=== PATIENT | male | born 1970 | race American Indian/Alaskan Native ===

== ENCOUNTER 2019-07-11 07:24 | Inpatient (IN) | payer OTHER ==
[2019-07-11] MEDS ORDERED: ASPIRIN 325 MG TAB PO ONE (07:38)
[2019-07-11 08:10] LABS: Basophils % (Auto) 0.1 % (0.0-1.8); Eosinophils % (Auto) 0.1 % (0.0-4.3); Hematocrit 25.4 % (35.5-45.6); Hemoglobin 8.2 gm/dl (11.8-15.2); Lymphocytes # (Auto) 0.5 K/mm3 (1.2-5.4); Lymphocytes % (Auto) 4.2 % (13.4-35.0); Mean Corpuscular HGB Conc 33 % (32-34); Mean Corpuscular Volume 89 fl (84-94); Monocytes # (Auto) 0.9 K/mm3 (0.0-0.8); Monocytes % (Auto) 8.2 % (0.0-7.3); Platelet Count 361 K/mm3 (140-440); Red Blood Count 2.86 M/mm3 (3.65-5.03); Red Cell Distribution Width 15.2 % (13.2-15.2)
[2019-07-11 08:18] LABS: INR 1.69 (0.87-1.13)
[2019-07-11 08:30] LABS: BUN/Creatinine Ratio 17; Blood Urea Nitrogen 12 mg/dL (9-20); Hemolysis Index 6
--- NOTE | 2019-07-11 08:32 | XRay Report ---
CHEST 2 VIEWS INDICATION: Chest Pain. COMPARISON: None FINDINGS: Support devices: None. Heart: Within normal limits. Lungs/pleura: There is poor inspiration with mild atelectatic changes in the lower lung zones. No ev idence for infiltrate, pleural effusion or pneumothorax. Additional findings: None. IMPRESSION: No acute findings. Poor inspiration with mild bibasilar atelectasis. Signer Name: Gary Blanchard Jr, MD Signed: 07/11/2019 8:28 AM Workstation Name: [id number]
--- NOTE | 2019-07-11 08:43 | Emergency Department Report ---
ED General Adult HPI - General Chief complaint: Chest Pain Stated complaint: CHEST PAIN, BURNING Time Seen by Provider: 07/11/19 08:28 Source: patient Mode of arrival: Ambulatory Limitations: No Limitations - History of Present Illness Initial comments: This is a 48-year old male who is an extremely poor historian. Apparently last night he was found to have a pulmonary embolism. He states he is taking a blood thinner but does not know the name. He does not know the name of any of his medications. He also has previous prescription for Namenda and Seroquel which may be indicative of his difficulty in providing an adequate medical history. The patient is accompanied by 2 gentleman from [employer]. One of the [employer] employees states that the patient put his head down on his desk stating that he felt like he was going to pass out. He came around somewhat. EMS was called to the scene. According to the [employer] employees they stated that EMS found the vital signs to be stable but offered transport. The patient declined. The patient himself then attempted to leave on his own accord to "drive himself to the hospital". However one of the coworkers intervened and the 2 gentleman brought the patient to the emergency department. The [employer] employees also state that the patient has had a very poor oral intake and appetite. On arrival the patient gives a very confused history. He states that he has a chronic cough which sometimes produces blood but is "normal". He states he had some burning in his anterior chest. He states his abdomen is more distended than usual. He is comfortable at the time of my encounter and not really actively complaining of anything. It would seem from the account of the coworkers that the patient has chronic liver disease, ascites, a liver mass and perhaps a history of pulmonary embolism. It looks like he has a history of hypertension judging from his previous medical reconciliation. Information from the [facility] physician indicates that the patient has a history of hepatocellular carcinoma and portal vein thrombosis. He is currently on Pradaxa. -: Gradual, hour(s) Location: chest Radiation: non-radiation Quality: burning Consistency: intermittent Improves with: none Worsens with: none Associated Symptoms: other (Abdomen uncomfortable when he sits up) Treatments Prior to Arrival: none - Related Data Allergies Allergy/AdvReac Type Severity Reaction Status Date / Time No Known Allergies Allergy Verified 07/11/19 08:31 ED Review of Systems ROS: Stated complaint: CHEST PAIN, BURNING Other details as noted in HPI Constitutional: weakness. denies: chills, fever Eyes: denies: eye pain, eye discharge, vision change ENT: denies: ear pain, throat pain Respiratory: cough (Chronic with hemoptysis sometimes). denies: shortness of breath, wheezing Cardiovascular: chest pain. denies: palpitations Endocrine: no symptoms reported Gastrointestinal: abdominal pain, other (Patient denies GI bleeding however he is a very poor historian.). denies: nausea, diarrhea Genitourinary: denies: urgency, dysuria Musculoskeletal: denies: back pain, joint swelling, arthralgia Skin: denies: rash, lesions Neurological: denies: headache, weakness, paresthesias Psychiatric: denies: anxiety, depression Hematological/Lymphatic: denies: easy bleeding, easy bruising ED Past Medical Hx - Past Medical History Previous Medical History?: Yes Hx Pulmonary Embolism: Yes Additional medical history: Liver mass - Surgical History Past Surgical History?: No - Social History Smoking Status: Never Smoker Substance Use Type: None ED Physical Exam - General Limitations: No Limitations General appearance: alert, in no apparent distress - Head Head exam: Present: atraumatic, normocephalic - Eye Eye exam: Present: normal appearance, PERRL - ENT ENT exam: Present: mucous membranes moist - Neck Neck exam: Present: normal inspection. Absent: tenderness, meningismus - Respiratory Respiratory exam: Present: normal lung sounds bilaterally. Absent: respiratory distress - Cardiovascular Cardiovascular Exam: Present: normal rhythm, tachycardia (Borderline). Absent: systolic murmur, diastolic murmur, rubs, gallop - GI/Abdominal GI/Abdominal exam: Present: soft, distended (Somewhat tense ascites), normal bowel sounds, organomegaly (Likely hepatomegaly). Absent: tenderness (No dana tenderness), guarding, rebound - Rectal Rectal exam: Present: heme (+) stool (trace) - Extremities Exam Extremities exam: Present: normal inspection. Absent: calf tenderness - Back Exam Back exam: Present: normal inspection. Absent: CVA tenderness (R), CVA tenderness (L), muscle spasm, paraspinal tenderness, vertebral tenderness - Neurological Exam Neurological exam: Present: alert, oriented X3, CN II-XII intact. Absent: motor sensory deficit - Psychiatric Psychiatric exam: Present: normal mood, flat affect - Skin Skin exam: Present: warm, dry, intact, normal color. Absent: rash ED Course Vital Signs 07/11/19 07/11/19 07/11/19 07:36 08:34 08:41 Temperature 97.9 F Pulse Rate 104 H 98 H Respiratory 18 24 26 H Rate Blood Pressure Blood Pressure 122/80 123/83 [Right] O2 Sat by Pulse 100 100 100 Oximetry 07/11/19 12:45 Temperature 97.8 F Pulse Rate 98 H Respiratory 24 Rate Blood Pressure 105/74 Blood Pressure [Right] O2 Sat by Pulse 99 Oximetry - Reevaluation(s) Reevaluation #1: Patient has significant hyponatremia. Normal saline infusion was begun. Further work-up is ordered. I have paged the [facility] physician to determine the patient's ultimate disposition. He obviously will require hospitalization. 07/11/19 09:00 Reevaluation #2: Discussed with Dr. Archer at [facility]. She has approved the patient's admission here. 07/11/19 12:42 ED Medical Decision Making - Lab Data Result diagrams: 07/11/19 07:40 07/11/19 07:40 Laboratory Results - last 24 hr 07/11/19 07/11/19 07/11/19 07:40 07:40 07:40 WBC 11.3 H RBC 2.86 L Hgb 8.2 L Hct 25.4 L MCV 89 MCH 29 MCHC 33 RDW 15.2 Plt Count 361 Lymph % (Auto) 4.2 L [place] % (Auto) 8.2 H Eos % (Auto) 0.1 Baso % (Auto) 0.1 Lymph # 0.5 L [place] # 0.9 H Eos # 0.0 Baso # 0.0 Seg Neutrophils % 87.4 H Seg Neutrophils # 9.9 H PT 20.2 H INR 1.69 H APTT 71.0 H* Sodium 121 L Potassium 4.0 Chloride 82.9 L Carbon Dioxide 21 L Anion Gap 21 BUN 12 Creatinine 0.7 L Estimated GFR > 60 BUN/Creatinine Ratio 17 Glucose 157 H Calcium 8.0 L Troponin T < 0.010 Laboratory Results - last 24 hr 07/11/19 07/11/19 07/11/19 07:40 07:40 07:40 WBC 11.3 H RBC 2.86 L Hgb 8.2 L Hct 25.4 L MCV 89 MCH 29 MCHC 33 RDW 15.2 Plt Count 361 Lymph % (Auto) 4.2 L [place] % (Auto) 8.2 H Eos % (Auto) 0.1 Baso % (Auto) 0.1 Lymph # 0.5 L [place] # 0.9 H Eos # 0.0 Baso # 0.0 Seg Neutrophils % 87.4 H Seg Neutrophils # 9.9 H PT 20.2 H INR 1.69 H APTT 71.0 H* Sodium 121 L Potassium 4.0 Chloride 82.9 L Carbon Dioxide 21 L Anion Gap 21 BUN 12 Creatinine 0.7 L Estimated GFR > 60 BUN/Creatinine Ratio 17 Glucose 157 H Lactic Acid Calcium 8.0 L Magnesium Ammonia Total Creatine Kinase CK-MB (CK-2) CK-MB (CK-2) Rel Index Troponin T < 0.010 NT-Pro-B Natriuret Pep 07/11/19 07/11/19 07/11/19 08:58 08:58 08:58 WBC RBC Hgb Hct MCV MCH MCHC RDW Plt Count Lymph % (Auto) [place] % (Auto) Eos % (Auto) Baso % (Auto) Lymph # [place] # Eos # Baso # Seg Neutrophils % Seg Neutrophils # PT INR APTT Sodium Potassium Chloride Carbon Dioxide Anion Gap BUN Creatinine Estimated GFR BUN/Creatinine Ratio Glucose Lactic Acid 5.30 H* Calcium Magnesium 2.70 H Ammonia 39.0 Total Creatine Kinase 106 CK-MB (CK-2) < 1.0 CK-MB (CK-2) Rel Index 0.9 Troponin T < 0.010 NT-Pro-B Natriuret Pep 292.7 - EKG Data -: EKG Interpreted by Me EKG shows normal: sinus rhythm Rate: normal - EKG Data Interpretation: nonspecific ST-T wave melissa (Consider old inferior zone), other (Right bundle branch block prolonged QT interval nonspecific repolarization abnormality) - Radiology Data Radiology results: report reviewed (Restricted lung, discoid atelect, I don't see anything acute on CT scan), image reviewed IMPRESSION: Markedly abnormal liver. There is evidence for cirrhosis and multiple liver masses. This may represent a primary liver malignancy such as hepatocellular carcinoma. Metastatic disease is not excluded. Large ascites and multiple peritoneal nodules consistent with metastatic disease. Portal vein thrombosis. IMPRESSION: No acute abnormality. Negative unenhanced CT of the brain. Critical Care Time: Yes Critical care time in (mins) excluding proc time.: 110 Critical care attestation.: If time is entered above; I have spent that time in minutes in the direct care of this critically ill patient, excluding procedure time. ED Disposition Clinical Impression: Hepatocellular carcinoma, Hyponatremia, Lactic acidosis Ascites Qualifiers: Ascites type: malignant Qualified Code(s): R18.0 - Malignant ascites GI bleeding Qualifiers: GI bleed type/associated pathology: unspecified gastrointestinal hemorrhage type Qualified Code(s): K92.2 - Gastrointestinal hemorrhage, unspecified Anemia Qualifiers: Anemia type: unspecified type Qualified Code(s): D64.9 - Anemia, unspecified Disposition: DC-09 OP ADMIT IP TO THIS HOSP Is pt being admited?: Yes Does the pt Need Aspirin: No (GI bleeding) Condition: Stable Referrals: VIVIANA DUNN [Other] - 3-5 Days
[2019-07-11] MEDS ORDERED: PANTOPRAZOLE 40 MG INJ IV ONE (08:58)
[2019-07-11] MEDS ORDERED: SODIUM CHLORIDE 0.9% 1000 ML 1,000 ML IV ONE (09:10)
[2019-07-11] MEDS ORDERED: SODIUM CHLORIDE 0.9% 1000 ML 1,000 ML ONE (09:13)
[2019-07-11] MEDS ORDERED: traMADol 50 MG TAB PO ONE (09:52)
[2019-07-11 10:03] LABS: Creatine Kinase MB < 1.0 ng/mL (0.0-4.0)
--- NOTE | 2019-07-11 10:13 | Cat Scan Report ---
CT BRAIN: 07/11/2019 INDICATION / CLINICAL INFORMATION: AMS h/o liver mass. COMPARISON: None available. FINDINGS: BRAIN/INTRACRANIAL STRUCTURES: Unenhanced CT images of the brain demonstrate no evidence of acute int racranial abnormality. Ventricles and sulci are normal in size and shape for a patient of this age. There is no evidence of hemorrhage or mass. There are no abnormal extra-axial fluid collections. EXTRACRANIAL STRUCTURES: Unremarkable. IMPRESSION: No acute abnormality. Negative unenhanced CT of the brain. All CT scans at this location are performed using dose reduction to ALARA by means of automated expos ure control. Signer Name: Chava Mendoza MD Signed: 07/11/2019 10:09 AM Workstation Name: [id number]
[2019-07-11] MEDS ORDERED: PIPERACILLIN/TAZOBACTAM 3.375 3.375 GM/50 ML BAG IV ONE (10:16)
[2019-07-11] MEDS ORDERED: SODIUM CHLORIDE 0.9% 500 ML 500 ML IV ONE (10:17)
[2019-07-11] MEDS ORDERED: VANCOMYCIN 1,750 MG in SODIUM CHLORIDE 0.9% 500 ML 500 ML IV SCH (10:30)
[2019-07-11] MEDS ORDERED: VANCOMYCIN PHARMACY TO DOSE IV SCH (11:00)
--- NOTE | 2019-07-11 12:15 | Cat Scan Report ---
CT ABDOMEN AND PELVIS WITH CONTRAST HISTORY: Tense ascites lactic acidosis abd pain and distention . COMPARISON: None. TECHNIQUE: Helical CT images of the abdomen and pelvis were obtained following administration of intr avenous contrast. Sagittal and coronal reformatted images were reviewed. All CT scans at this critical access hospital are performed using CT dose reduction for ALARA by means of automated exposure control. CONTRAST: 100 ml of intravenous contrast administered. FINDINGS: Abdomen/pelvis: The liver is markedly abnormal. Surface nodularity is identified throughout the live r consistent with cirrhosis. A large heterogeneous infiltrating mass is identified in the right hepat ic lobe measuring up to 10 cm in diameter. There are multiple additional smaller hypodense masses in the right hepatic lobe. This may represent a primary liver cancer such as hepatocellular carcinoma. P ortal vein thrombosis is suspected which extends to the proximal superior mesenteric vein. The hepati c veins are grossly patent. The spleen is normal size and contour. The biliary system, pancreas, kidn eys and adrenal glands are unremarkable. There is large ascites throughout the abdomen and pelvis. Multiple enhancing peritoneal nodules/eve s are identified consistent with peritoneal spread of tumor. No evidence for bowel obstruction or focal inflammation. No obvious GI mass. The bladder is empty. The prostate gland is normal size. The aorta and arterial structures are widel y patent. Lungs/bones: The lung bases are clear. No suspicious bony lesion is detected. IMPRESSION: Markedly abnormal liver. There is evidence for cirrhosis and multiple liver masses. This may represen t a primary liver malignancy such as hepatocellular carcinoma. Metastatic disease is not excluded. Large ascites and multiple peritoneal nodules consistent with metastatic disease. Portal vein thrombosis. Signer Name: Gary Blanchard Jr, MD Signed: 07/11/2019 12:11 PM Workstation Name: [id number]
[2019-07-11] MEDS: VANCOMYCIN 1,500 MG in SODIUM CHLORIDE 0.9% 500 ML 500 ML IV SCH (12:29)
[2019-07-11] MEDS ORDERED: ALBUTEROL 2.5 MG/3 ML NEBU IH PRN (12:43)
[2019-07-11 12:45] LABS: Bilirubin,Urine NEG (Negative); Blood,Urine NEG (Negative); Color,Urine Yellow (Yellow); Protein,Urine <15 mg/dL mg/dL (Negative); Urobilinogen,Urine < 2.0 mg/dL (<2.0)
--- NOTE | 2019-07-11 13:51 | History and Physical Report ---
History of Present Illness Date of admission: 07/11/19 12:43 Chief complaint: I am hurting, I feel weak and I could not breathe History of present illness: 48-year-old male with HCC, Portal Vein Thrombosis/PE on Therapeutic Anticoagulation with Pradaxa, HTN presents to ED for evaluation. Patient states that he has experienced generalized weakness, fatigue, and shortness of breath over the past 1 month with worsening symptoms over the past 1 day. Patient also reports that he has frequent episodes where he "coughs up blood". Patient states that he reported to work today and while conducting his daily work activities he reported feeling as though "I was going to pass out". Patient a lso reported pain in his chest. EMS was notified and upon arrival the patient was found to be in distress and subsequently transported to [facility] for further evaluation and care. Patient seen and evaluated in the emergency department. Lab and imaging studies reviewed. Upon further physical examination the patient localizes an area of pain in the epigastric region as the source of his pain which was previously referred to his chest pain. Patient found to have hepatocellular carcinoma, systemic inflammatory response syndrome, metabolic acidosis, symptomatic anemia suspected secondary to GI bleed. Patient denies fever, chills, palpitations, trauma, skin rash, recent ill contacts. Patient admitted to IM for medical stabilization due to high risk for decompensation. Patient initiated on GI bleed protocol and transfused with packed red blood cells. GI team consult placed in ED. No prior admission for review. All medication listed at time of admission have been reconciled. Past History Past Medical History: cancer, hypertension, pulmonary embolism Past Surgical History: No surgical history, Other (Reviewed) Social history: single. denies: smoking, alcohol abuse, prescription drug abuse Family history: hypertension, other (Reviewed) Medications and Allergies Allergies Allergy/AdvReac Type Severity Reaction Status Date / Time No Known Allergies Allergy Verified 07/11/19 08:31 Active Meds: Active Medications Albuterol (Proventil) 2.5 mg IH Q3HRT PRN PRN Reason: Shortness Of Breath Sodium Chloride (Nacl 0.9% 1000 Ml) 1,000 mls @ 125 mls/hr IV ONCE ONE Stop: 07/11/19 17:09 Last Admin: 07/11/19 09:14 Dose: 125 mls/hr Documented by: Vancomycin HCl 1,500 mg/ (Sodium Chloride) 530 mls @ 265 mls/hr IV Q12H [facility] Last Admin: 07/11/19 12:29 Dose: 265 mls/hr Documented by: Sodium Chloride (Sodium Chloride Flush Syringe 10 Ml) 10 ml IV BID [facility] Sodium Chloride (Sodium Chloride Flush Syringe 10 Ml) 10 ml IV PRN PRN PRN Reason: LINE FLUSH Review of Systems Constitutional: fatigue, weakness, no weight loss, no weight gain, no fever Ears, nose, mouth and throat: no ear pain, no ear discharge, no decreased hearing, no nasal discharge Cardiovascular: no chest pain, no orthopnea, no palpitations, no rapid/irregular heart beat, no edema Respiratory: cough, hemoptysis Gastrointestinal: abdominal pain, no nausea, no vomiting Genitourinary Male: no hematuria, no flank pain, no discharge, no urinary freque ncy, no urinary hesitancy Rectal: no pain, no incontinence, no bleeding Musculoskeletal: no neck stiffness, no neck pain, no shooting arm pain, no arm numbness/tingling, no low back pain, no leg numbness/tingling Integumentary: no rash, no pruritis, no sores, no wounds, no jaundice Neurological: no transient paralysis, no paralysis, no weakness, no parathesias, no tingling, no seizures, no syncope, no tremors Psychiatric: no anxiety, no memory loss, no change in sleep habits, no sleep disturbances, no insomnia, no hypersomnia, no change in libido, no suicidal ideation Endocrine: no cold intolerance, no heat intolerance, no polyphagia, no excessive thirst, no polydipsia, no polyuria, no excessive sweating, no flushing Hematologic/Lymphatic: no easy bruising, no easy bleeding, no lymphadenopathy, no lymphedema Allergic/Immunologic: no urticaria, no allergic rhinitis, no persistent infectio ns, no anaphylaxis Exam - Constitutional Vitals: Temp Pulse Resp BP Pulse Ox 97.9 F 95 H 24 127/87 99 07/11/19 13:30 07/11/19 13:30 07/11/19 13:30 07/11/19 13:30 07/11/19 13:30 General appearance: Present: mild distress, cachectic - EENT Eyes: Present: PERRL ENT: hearing intact, clear oral mucosa - Neck Neck: Present: supple, normal ROM - Respiratory Respiratory effort: normal Respiratory: bilateral: CTA - Cardiovascular Heart Sounds: Present: S1 & S2. Absent: rub, click - Extremities Extremities: pulses symmetrical, No edema Peripheral Pulses: within normal limits - Abdominal General gastrointestinal: Present: soft, non-tender, tender, normal bowel sounds Male genitourinary: Present: normal - Integumentary Integumentary: Present: clear, warm, dry - Musculoskeletal Musculoskeletal: generalized weakness - Psychiatric Psychiatric: appropriate mood/affect, intact judgment & insight - Neurologic Neurologic: CNII-XII intact, moves all extremities Results - Labs CBC & Chem 7: 07/11/19 07:40 07/11/19 07:40 Labs: Abnormal lab results 07/11/19 07/11/19 07/11/19 Range/Units 07:40 07:40 07:40 WBC 11.3 H (4.5-11.0) K/mm3 RBC 2.86 L (3.65-5.03) M/mm3 Hgb 8.2 L (11.8-15.2) gm/dl Hct 25.4 L (35.5-45.6) % Lymph % (Auto) 4.2 L (13.4-35.0) % [place] % (Auto) 8.2 H (0.0-7.3) % Lymph # 0.5 L (1.2-5.4) K/mm3 [place] # 0.9 H (0.0-0.8) K/mm3 Seg Neutrophils % 87.4 H (40.0-70.0) % Seg Neutrophils # 9.9 H (1.8-7.7) K/mm3 PT 20.2 H (12.2-14.9) Sec. INR 1.69 H (0.87-1.13) APTT 71.0 H* (24.2-36.6) Sec. Sodium 121 L (137-145) mmol/L Chloride 82.9 L (98-107) mmol/L Carbon Dioxide 21 L (22-30) mmol/L Creatinine 0.7 L (0.8-1.5) mg/dL Glucose 157 H (75-100) mg/dL Lactic Acid (0.7-2.0) mmol/L Calcium 8.0 L (8.4-10.2) mg/dL Magnesium (1.7-2.3) mg/dL Crossmatch 07/11/19 07/11/19 07/11/19 Range/Units 08:58 08:58 10:07 WBC (4.5-11.0) K/mm3 RBC (3.65-5.03) M/mm3 Hgb (11.8-15.2) gm/dl Hct (35.5-45.6) % Lymph % (Auto) (13.4-35.0) % [place] % (Auto) (0.0-7.3) % Lymph # (1.2-5.4) K/mm3 [place] # (0.0-0.8) K/mm3 Seg Neutrophils % (40.0-70.0) % Seg Neutrophils # (1.8-7.7) K/mm3 PT (12.2-14.9) Sec. INR (0.87-1.13) APTT (24.2-36.6) Sec. Sodium (137-145) mmol/L Chloride (98-107) mmol/L Carbon Dioxide (22-30) mmol/L Creatinine (0.8-1.5) mg/dL Glucose (75-100) mg/dL Lactic Acid 5.30 H* 4.80 H* (0.7-2.0) mmol/L Calcium (8.4-10.2) mg/dL Magnesium 2.70 H (1.7-2.3) mg/dL Crossmatch 07/11/19 07/11/19 Range/Units 10:39 12:20 WBC (4.5-11.0) K/mm3 RBC (3.65-5.03) M/mm3 Hgb (11.8-15.2) gm/dl Hct (35.5-45.6) % Lymph % (Auto) (13.4-35.0) % [place] % (Auto) (0.0-7.3) % Lymph # (1.2-5.4) K/mm3 [place] # (0.0-0.8) K/mm3 Seg Neutrophils % (40.0-70.0) % Seg Neutrophils # (1.8-7.7) K/mm3 PT (12.2-14.9) Sec. INR (0.87-1.13) APTT (24.2-36.6) Sec. Sodium (137-145) mmol/L Chloride (98-107) mmol/L Carbon Dioxide (22-30) mmol/L Creatinine (0.8-1.5) mg/dL Glucose (75-100) mg/dL Lactic Acid 4.00 H* (0.7-2.0) mmol/L Calcium (8.4-10.2) mg/dL Magnesium (1.7-2.3) mg/dL Crossmatch See Detail Assessment and Plan - Patient Problems (1) Systemic inflammatory response syndrome Current Visit: Yes Status: Acute Plan to address problem: Empiric IV antibiotic therapy x1 dose, IV fluid resuscitation therapy, CBC, CMP, urinalysis, chest x-ray. Repeat CBC in a.m. (2) GI bleeding Current Visit: Yes Status: Acute Qualifiers: GI bleed type/associated pathology: unspecified gastrointestinal hemorrhage type Qualified Code(s): K92.2 - Gastrointestinal hemorrhage, unspecified Plan to address problem: GI team consult placed in ED, packed red blood cell transfusion, serial CBC, a dmit to IMCU. (3) Hepatocellular carcinoma Current Visit: Yes Status: Acute Plan to address problem: GI team consulted, outpatient oncology follow-up, supportive care., CT abdomen and pelvis., Liver function test. (4) Hyponatremia Current Visit: Yes Status: Acute Plan to address problem: IV fluid resuscitation therapy, supportive care (5) Lactic acidosis Current Visit: Yes Status: Acute Plan to address problem: IV fluid resuscitation therapy, BMP, repeat BMP in a.m. (6) DVT prophylaxis Current Visit: Yes Status: Acute Plan to address problem: SCD to bilateral lower extremities while in bed, hold anticoagulation for now due to GI bleed.
[2019-07-11] MEDS ORDERED: MORPHINE 2 MG/1 ML INJ IV ONE (18:17)
[2019-07-11] MEDS ORDERED: MORPHINE 2 MG/1 ML INJ ONE (18:22)
[2019-07-11] MEDS: MORPHINE 2 MG/1 ML INJ IV PRN (18:23)
[2019-07-11 20:55] LABS: Albumin 2.4 g/dL (3.9-5)
[2019-07-11] MEDS: PANTOPRAZOLE 40 MG INJ IV SCH (22:09)
[2019-07-12] MEDS: VANCOMYCIN 1,500 MG in SODIUM CHLORIDE 0.9% 500 ML 500 ML IV SCH (00:05)
[2019-07-12 05:01] LABS: Basophils % (Auto) 0.1 % (0.0-1.8); Eosinophils % (Auto) 0.2 % (0.0-4.3); Hematocrit 25.7 % (35.5-45.6); Hemoglobin 8.7 gm/dl (11.8-15.2); Lymphocytes # (Auto) 0.8 K/mm3 (1.2-5.4); Lymphocytes % (Auto) 5.2 % (13.4-35.0); Mean Corpuscular HGB Conc 34 % (32-34); Mean Corpuscular Volume 86 fl (84-94); Monocytes # (Auto) 1.8 K/mm3 (0.0-0.8); Monocytes % (Auto) 11.3 % (0.0-7.3); Platelet Count 339 K/mm3 (140-440); Red Cell Distribution Width 15.5 % (13.2-15.2)
[2019-07-12 05:18] LABS: Alanine Aminotransferase 42 units/L (7-56); Albumin 2.3 g/dL (3.9-5); BUN/Creatinine Ratio 24; Blood Urea Nitrogen 12 mg/dL (9-20); Calcium 8.1 mg/dL (8.4-10.2); Hemolysis Index 2
[2019-07-12] MEDS ORDERED: SODIUM CHLORIDE 0.9% 500 ML 500 ML IV ONE ×2 (06:28→08:10)
[2019-07-12 09:02] LABS: Hematocrit 28.9 % (35.5-45.6); Hemoglobin 9.5 gm/dl (11.8-15.2)
[2019-07-12] MEDS: MORPHINE 2 MG/1 ML INJ IV PRN ×2 (09:54→21:22)
[2019-07-12] MEDS: cefTRIAXone/NS 1 GM/50 ML 1 GM/50 ML BAG IV SCH (09:55)
[2019-07-12] MEDS: PANTOPRAZOLE 40 MG INJ IV SCH ×2 (09:55→21:22)
[2019-07-12] MEDS: metroNIDAZOLE/NS 500 MG/100 ML 500 MG/100 ML BAG IV SCH ×3 (09:56→21:23)
[2019-07-12] MEDS: FUROSEMIDE 40 MG/4 ML INJ IV SCH ×2 (10:48→18:47)
--- NOTE | 2019-07-12 13:55 | Hem/Onc Consultation ---
History of Present Illness - Reason for Consult Consult date: 07/12/19 liver lesion Requesting physician: LOVELY BRICEÑO - History of Present Illness 48-year-old male with HCC, Portal Vein Thrombosis/PE on Therapeutic Anticoagulation with Pradaxa, HTN presented to ED for evaluation. Patient stated that he has experienced generalized weakness, fatigue, and shortness of breath over the past 1 month with worsening symptoms. Patient also reports that he has frequent episodes where he "coughs up blood". Patient states that he reported to work today and while conducting his daily work activities he reported feeling as though "I was going to pass out". Isa nt also reported pain in his chest. EMS was notified and upon arrival the patient was found to be in distress and subsequently transported to [facility] for further evaluation and care. Patient found to have hepatocellular carcinoma, systemic inflammatory response syndrome, metabolic acidosis, symptomatic anemia suspected secondary to GI bleed. Patient denies fever, chills, palpitations, trauma, skin rash, recent ill contacts. Patient was admitted to IMCU for medical stabilization due to high risk for decompensation. GI team consult placed in ED. Past History Past Medical History: cancer, hypertension, pulmonary embolism Past Surgical History: No surgical history, Other (Reviewed) Social history: single. denies: smoking, alcohol abuse, prescription drug abuse Family history: hypertension, other (Reviewed) Medications and Allergies Allergies Allergy/AdvReac Type Severity Reaction Status Date / Time No Known Allergies Allergy Verified 07/11/19 08:31 Home Medications Medication Instructions Recorded Confirmed Last Taken Type Unobtainable 07/11/19 07/11/19 Unknown History Active Meds: Active Medications Albuterol (Proventil) 2.5 mg IH Q3HRT PRN PRN Reason: Shortness Of Breath Furosemide (Lasix) 40 mg IV 0600,1800 [facility] Last Admin: 07/12/19 10:48 Dose: 40 mg Documented by: Vancomycin HCl 1,500 mg/ (Sodium Chloride) 530 mls @ 265 mls/hr IV Q12H [facility]IT[facility] Last Admin: 07/12/19 00:05 Dose: 265 mls/hr Documented by: Metronidazole (Flagyl 500 Mg/100 Ml) 500 mg in 100 mls @ 100 mls/hr IV Q8HR [facility]; Protocol Last Admin: 07/12/19 09:56 Dose: 100 mls/hr Documented by: Ceftriaxone Sodium (Rocephin/Ns 1 Gm/50 Ml) 1 gm in 50 mls @ 100 mls/hr IV Q24HR [facility]; Protocol Last Admin: 07/12/19 09:55 Dose: 100 mls/hr Documented by: Morphine Sulfate (Morphine) 2 mg IV Q4H PRN PRN Reason: Pain, Moderate (4-6) Last Admin: 07/12/19 09:54 Dose: 2 mg Documented by: Pantoprazole Sodium (Protonix) 40 mg IV BID [facility] Last Admin: 07/12/19 09:55 Dose: 40 mg Documented by: Sodium Chloride (Sodium Chloride Flush Syringe 10 Ml) 10 ml IV BID [facility] Last Admin: 07/11/19 22:09 Dose: 10 ml Documented by: Sodium Chloride (Sodium Chloride Flush Syringe 10 Ml) 10 ml IV PRN PRN PRN Reason: LINE FLUSH Spironolactone (Aldactone) 50 mg PO QDAY [facility] Review of Systems Constitutional: weakness Ears, nose, mouth and throat: no epistaxis Cardiovascular: no shortness of breath Gastrointestinal: no abdominal pain Genitourinary Male: no hematuria Musculoskeletal: no neck pain Integumentary: no rash Neurological: weakness, no seizures Endocrine: no cold intolerance, no heat intolerance Exam - Exam Narrative Exam: Vitals were reviewed. No pallor No icterus No neck lymph nodes Heart S1-S2 present Lungs clear to auscultation anteriorly Abdomen soft Leg no edema Male genitalia not examined Neurology AAOx3 - Constitutional Vitals: Last Vital Signs Temp 97.4 F L 07/12/19 08:00 Pulse 97 H 07/12/19 07:41 Resp 45 H 07/12/19 07:41 BP 137/89 07/12/19 07:41 Pulse Ox 98 07/12/19 07:41 Results - Labs lab Results: Laboratory Results - last 24 hr 07/11/19 07/11/19 07/11/19 10:12 10:39 16:50 WBC RBC Hgb Hct MCV MCH MCHC RDW Plt Count Lymph % (Auto) [place] % (Auto) Eos % (Auto) Baso % (Auto) Lymph # [place] # Eos # Baso # Seg Neutrophils % Seg Neutrophils # Sodium Potassium Chloride Carbon Dioxide Anion Gap BUN Creatinine Estimated GFR BUN/Creatinine Ratio Glucose Lactic Acid Calcium Total Bilirubin 1.70 H Direct Bilirubin 1.0 H Indirect Bilirubin 0.7 AST 153 H ALT 51 Alkaline Phosphatase 212 H Troponin T < 0.010 Total Protein 6.9 Albumin 2.4 L Albumin/Globulin Ratio 0.5 Blood Type O POSITIVE Antibody Screen Negative Crossmatch See Detail 07/11/19 07/11/19 07/12/19 16:50 19:31 04:14 WBC RBC Hgb Hct MCV MCH MCHC RDW Plt Count Lymph % (Auto) [place] % (Auto) Eos % (Auto) Baso % (Auto) Lymph # [place] # Eos # Baso # Seg Neutrophils % Seg Neutrophils # Sodium Potassium Chloride Carbon Dioxide Anion Gap BUN Creatinine Estimated GFR BUN/Creatinine Ratio Glucose Lactic Acid 4.30 H* 3.90 H* 4.30 H* Calcium Total Bilirubin Direct Bilirubin Indirect Bilirubin AST ALT Alkaline Phosphatase Troponin T Total Protein Albumin Albumin/Globulin Ratio Blood Type Antibody Screen Crossmatch 07/12/19 07/12/19 07/12/19 04:14 04:14 08:11 WBC 16.1 H RBC 3.00 L Hgb 8.7 L 9.5 L Hct 25.7 L 28.9 L MCV 86 MCH 29 MCHC 34 RDW 15.5 H Plt Count 339 Lymph % (Auto) 5.2 L [place] % (Auto) 11.3 H Eos % (Auto) 0.2 Baso % (Auto) 0.1 Lymph # 0.8 L [place] # 1.8 H Eos # 0.0 Baso # 0.0 Seg Neutrophils % 83.2 H Seg Neutrophils # 13.4 H Sodium 126 L Potassium 4.1 Chloride 88.6 L Carbon Dioxide 22 Anion Gap 20 BUN 12 Creatinine 0.5 L Estimated GFR > 60 BUN/Creatinine Ratio 24 Glucose 117 H Lactic Acid Calcium 8.1 L Total Bilirubin 2.10 H Direct Bilirubin Indirect Bilirubin AST 122 H ALT 42 Alkaline Phosphatase 181 H Troponin T Total Protein 6.4 Albumin 2.3 L Albumin/Globulin Ratio 0.6 Blood Type Antibody Screen Crossmatch Assessment and Plan Assessment and Plan # ? GI bleeding GI team consult placed in ED, packed red blood cell transfusion prn # Hepatocellular carcinoma Current Visit: Yes Status: Acute Plan to address problem: GI team consulted, outpatient oncology follow-up, supportive care., CT abdomen and pelvis., Liver function test. # h/o thrombosis - ? portal vein notes mention pradaxa pt says he is not convinced he has liver cancer h/o hepatitis Anemia pts goes to [facility] - Patient Problems (1) Hepatocellular carcinoma Current Visit: Yes Status: Acute
--- NOTE | 2019-07-12 15:53 | Gastroenterology Consultation ---
History of Present Illness - Reason for Consult Consult date: 07/12/19 GI Bleed, Liver Mass Requesting physician: VINNIE ENRIQUEZ - History of Present Illness The hx is per the patient; he usually follows at [facility]. He passed out at work, and was brought to [facility]. He was noted to have dark stool, and anemia. He was started on pradaxa about a month ago (his report) for a PE. This was around the time he noted to have a swollen abdomen, and was dx with HCC. He says he has been on BID oral chemo for the last month. He has had no emesis or melena since arriving in the ICU, and his mental status has improved. Past History Past Medical History: cancer (HCC by report (follows at [facility])), hypertension, pulmonary embolism Past Surgical History: No surgical history, Other (Reviewed) Social history: single. denies: smoking, alcohol abuse, prescription drug abuse Family history: hypertension, other (Reviewed) Medications and Allergies Allergies Allergy/AdvReac Type Severity Reaction Status Date / Time No Known Allergies Allergy Verified 07/11/19 08:31 Home Medications Medication Instructions Recorded Confirmed Last Taken Type Unobtainable 07/11/19 07/11/19 Unknown History Active Meds: Active Medications Albuterol (Proventil) 2.5 mg IH Q3HRT PRN PRN Reason: Shortness Of Breath Furosemide (Lasix) 40 mg IV 0600,1800 [facility] Last Admin: 07/12/19 10:48 Dose: 40 mg Documented by: Vancomycin HCl 1,500 mg/ (Sodium Chloride) 530 mls @ 265 mls/hr IV Q12H [facility] Last Admin: 07/12/19 00:05 Dose: 265 mls/hr Documented by: Metronidazole (Flagyl 500 Mg/100 Ml) 500 mg in 100 mls @ 100 mls/hr IV Q8HR [facility]; Protocol Last Admin: 07/12/19 09:56 Dose: 100 mls/hr Documented by: Ceftriaxone Sodium (Rocephin/Ns 1 Gm/50 Ml) 1 gm in 50 mls @ 100 mls/hr IV Q24HR [facility]; Protocol Last Admin: 07/12/19 09:55 Dose: 100 mls/hr Documented by: Morphine Sulfate (Morphine) 2 mg IV Q4H PRN PRN Reason: Pain, Moderate (4-6) Last Admin: 07/12/19 09:54 Dose: 2 mg Documented by: Pantoprazole Sodium (Protonix) 40 mg IV BID [facility] Last Admin: 07/12/19 09:55 Dose: 40 mg Documented by: Sodium Chloride (Sodium Chloride Flush Syringe 10 Ml) 10 ml IV BID [facility] Last Admin: 07/11/19 22:09 Dose: 10 ml Documented by: Sodium Chloride (Sodium Chloride Flush Syringe 10 Ml) 10 ml IV PRN PRN PRN Reason: LINE FLUSH Spironolactone (Aldactone) 50 mg PO QDAY [facility] I HAVE REVIEWED AND RECONCILED MEDICATIONS Review of Systems - Review of Systems All systems: negative (as noted in the HPI.) Exam - Constitutional Vital Signs: Temp Pulse Resp BP Pulse Ox 97.5 F L 101 H 36 H 124/83 98 07/12/19 12:00 07/12/19 15:00 07/12/19 15:00 07/12/19 15:00 07/12/19 15:00 General appearance: no acute distress - EENT Eyes: PERRL, EOM intact, scleral icterus ENT: hearing intact, clear oral mucosa, no thrush - Neck Neck: supple, normal ROM - Respiratory Respiratory effort: normal Respiratory: bilateral: CTA - Cardiovascular Rhythm: regular Heart Sounds: Present: S1 & S2 Extremities: no ischemia, No edema - Gastrointestinal General gastrointestinal: Present: soft, non-tender, distended (Moderate firm distention (solid, not air)) - Integumentary Integumentary: Present: clear, warm, dry - Neurologic Neurological: alert and oriented x3 - Labs CBC & Chem 7: 07/12/19 08:11 07/12/19 04:14 Lab Results: Laboratory Results - last 24 hr 07/11/19 07/11/19 07/11/19 10:12 10:39 16:50 WBC RBC Hgb Hct MCV MCH MCHC RDW Plt Count Lymph % (Auto) [place] % (Auto) Eos % (Auto) Baso % (Auto) Lymph # [place] # Eos # Baso # Seg Neutrophils % Seg Neutrophils # Sodium Potassium Chloride Carbon Dioxide Anion Gap BUN Creatinine Estimated GFR BUN/Creatinine Ratio Glucose Lactic Acid Calcium Total Bilirubin 1.70 H Direct Bilirubin 1.0 H Indirect Bilirubin 0.7 AST 153 H ALT 51 Alkaline Phosphatase 212 H Troponin T < 0.010 Total Protein 6.9 Albumin 2.4 L Albumin/Globulin Ratio 0.5 Blood Type O POSITIVE Antibody Screen Negative Crossmatch See Detail 07/11/19 07/11/19 07/12/19 16:50 19:31 04:14 WBC RBC Hgb Hct MCV MCH MCHC RDW Plt Count Lymph % (Auto) [place] % (Auto) Eos % (Auto) Baso % (Auto) Lymph # [place] # Eos # Baso # Seg Neutrophils % Seg Neutrophils # Sodium Potassium Chloride Carbon Dioxide Anion Gap BUN Creatinine Estimated GFR BUN/Creatinine Ratio Glucose Lactic Acid 4.30 H* 3.90 H* 4.30 H* Calcium Total Bilirubin Direct Bilirubin Indirect Bilirubin AST ALT Alkaline Phosphatase Troponin T Total Protein Albumin Albumin/Globulin Ratio Blood Type Antibody Screen Crossmatch 07/12/19 07/12/19 07/12/19 04:14 04:14 08:11 WBC 16.1 H RBC 3.00 L Hgb 8.7 L 9.5 L Hct 25.7 L 28.9 L MCV 86 MCH 29 MCHC 34 RDW 15.5 H Plt Count 339 Lymph % (Auto) 5.2 L [place] % (Auto) 11.3 H Eos % (Auto) 0.2 Baso % (Auto) 0.1 Lymph # 0.8 L [place] # 1.8 H Eos # 0.0 Baso # 0.0 Seg Neutrophils % 83.2 H Seg Neutrophils # 13.4 H Sodium 126 L Potassium 4.1 Chloride 88.6 L Carbon Dioxide 22 Anion Gap 20 BUN 12 Creatinine 0.5 L Estimated GFR > 60 BUN/Creatinine Ratio 24 Glucose 117 H Lactic Acid Calcium 8.1 L Total Bilirubin 2.10 H Direct Bilirubin Indirect Bilirubin AST 122 H ALT 42 Alkaline Phosphatase 181 H Troponin T Total Protein 6.4 Albumin 2.3 L Albumin/Globulin Ratio 0.6 Blood Type Antibody Screen Crossmatch Assessment and Plan - Patient Problems (1) Acute blood loss anemia Current Visit: Yes Status: Acute Plan to address problem: - Unclear of hct baseline (given mets cancer), but recent use of pradaxa for PE acutely worsened with some melena. - Will continue PO protonix, and hold pradaxa for now. - Patient not unstable, no emergent need for an endoscopy. - Patient to consult with [facility] re: buttermaker helper use of pradaxa given likely terminal CA. (2) Hepatocellular carcinoma Current Visit: Yes Status: Acute Plan to address problem: - Records not available, but if truly HCC with significant peritoneal mets, prognosis very grim. - Recommend transition to [facility] facility to discuss with primary Oncology team utility of long-term treatment, especially if worsening risk of GI bleed, or even causing potential hemobilia.
[2019-07-12] MEDS: SPIRONOLACTONE 50 MG TAB PO SCH (18:47)
--- NOTE | 2019-07-12 21:24 | Progress Note ---
Assessment and Plan Assessment and plan: 48-year-old male with HCC, Portal Vein Thrombosis/PE on Therapeutic Anticoagulation with Pradaxa, HTN presents to ED for evaluation. Patient states that he has experienced generalized weakness, fatigue, and shortness of breath over the past 1 month with worsening symptoms over the past 1 day. Patient also reports that he has frequent episodes where he "coughs up blood". Patient states that he reported to work today and while conducting his daily work activities he reported feeling as though "I was going to pass out". Patient also reported pain in his chest. EMS was notified and upon arrival the patient was found to be in distress and subsequently transported to [facility] for further evaluation and care. Patient seen and evaluated in the emergency department. Lab and imaging studies reviewed. Upon further physical examination the patient localizes an area of pain in the epigastric region as the source of his pain which was previously referred to his chest pain. Patient found to have hepat ocellular carcinoma, systemic inflammatory response syndrome, metabolic acidosis, symptomatic anemia suspected secondary to GI bleed. Patient denies fever, chills, palpitations, trauma, skin rash, recent ill contacts. Patient admitted to [facility] for medical stabilization due to high risk for decompensation. Patient initiated on GI bleed protocol and transfused with packed red blood cells. GI team consult placed in ED. No prior admission for review. All medication listed at time of admission have been reconciled. Imaging studies. Large Ascites Systemic inflammatory response syndrome * Continue Empiric IV antibiotic therapy x1 dose, IV fluid resuscitation therapy, CBC, CMP, urinalysis, chest x-ray. Repeat CBC in a.m. GI bleeding Ruled out * GI team consult placed in ED, packed red blood cell transfusion, serial CBC. Hepatocellular carcinoma * GI team consulted, outpatient oncology follow-up, supportive care., CT abdomen and pelvis., Liver function test. Hyponatremia * IV fluid resuscitation therapy, supportive care Lactic acidosis * IV fluid resuscitation therapy, BMP, repeat BMP in a.m. Abdominal Ascites possible Malignant: Obtain Paracentesis Acute Respiratory failure secondary to abdominal Ascites: Supportive care, nebs, expect improvement with paracentesis DVT prophylaxis Current Visit: Yes Status: Acute Plan to address problem: SCD to bilateral lower extremities while in bed, hold anticoagulation for now due to GI bleed. History Interval history: Patient seen and examined, in moderate distress. no chest pain or abdominal pain. Hospitalist Physical - Physical exam Narrative exam: VITAL SIGNS: Reviewed. GENERAL: The patient appears normally developed, Vital signs as documented. HEAD: No signs of head trauma. EYES: Pupils are equal. Extraocular motions intact. EARS: Hearing grossly intact. MOUTH: Oropharynx is normal. NECK: No adenopathy, no JVD. CHEST: Chest with Diminished breath sounds bilaterally, tachypenic. No wheezes, rales, or rhonchi. CARDIAC: Tachycardia rate and rhythm. S1 and S2, without murmurs, gallops, or rubs. VASCULAR: trace Edema. Peripheral pulses normal and equal in all extremities. ABDOMEN: Soft, non tender, distended. No rebound or guarding, and no masses palpated. Bowel Sounds normal. MUSCULOSKELETAL: Good range of motion of all major joints. Extremities without clubbing, cyanosis. race or edema. NEUROLOGIC EXAM: Alert and oriented x 3 No focal sensory or strength deficits. Speech normal. Follows commands. PSYCHIATRIC: Mood normal. SKIN: detial exam as documented in skin assessment - Constitutional Vitals: Temp Pulse Resp BP Pulse Ox 97.4 F L 122 H 29 H 112/72 94 07/12/19 21:02 07/12/19 20:00 07/12/19 20:00 07/12/19 21:01 07/12/19 21:01 General appearance: Present: mild distress, cachectic Results - Labs CBC & Chem 7: 07/13/19 05:27 07/13/19 05:27 Labs: Laboratory Last Values WBC 16.1 K/mm3 (4.5-11.0) H 07/12/19 04:14 RBC 3.00 M/mm3 (3.65-5.03) L 07/12/19 04:14 Hgb 9.5 gm/dl (11.8-15.2) L 07/12/19 08:11 Hct 28.9 % (35.5-45.6) L 07/12/19 08:11 MCV 86 fl (84-94) 07/12/19 04:14 MCH 29 pg (28-32) 07/12/19 04:14 MCHC 34 % (32-34) 07/12/19 04:14 RDW 15.5 % (13.2-15.2) H 07/12/19 04:14 Plt Count 339 K/mm3 (140-440) 07/12/19 04:14 Lymph % (Auto) 5.2 % (13.4-35.0) L 07/12/19 04:14 [place] % (Auto) 11.3 % (0.0-7.3) H 07/12/19 04:14 Eos % (Auto) 0.2 % (0.0-4.3) 07/12/19 04:14 Baso % (Auto) 0.1 % (0.0-1.8) 07/12/19 04:14 Lymph # 0.8 K/mm3 (1.2-5.4) L 07/12/19 04:14 [place] # 1.8 K/mm3 (0.0-0.8) H 07/12/19 04:14 Eos # 0.0 K/mm3 (0.0-0.4) 07/12/19 04:14 Baso # 0.0 K/mm3 (0.0-0.1) 07/12/19 04:14 Seg Neutrophils % 83.2 % (40.0-70.0) H 07/12/19 04:14 Seg Neutrophils # 13.4 K/mm3 (1.8-7.7) H 07/12/19 04:14 PT 20.2 Sec. (12.2-14.9) H 07/11/19 07:40 INR 1.69 (0.87-1.13) H 07/11/19 07:40 APTT 71.0 Sec. (24.2-36.6) H* 07/11/19 07:40 Sodium 126 mmol/L (137-145) L 07/12/19 04:14 Potassium 4.1 mmol/L (3.6-5.0) 07/12/19 04:14 Chloride 88.6 mmol/L (98-107) L 07/12/19 04:14 Carbon Dioxide 22 mmol/L (22-30) 07/12/19 04:14 Anion Gap 20 mmol/L 07/12/19 04:14 BUN 12 mg/dL (9-20) 07/12/19 04:14 Creatinine 0.5 mg/dL (0.8-1.5) L 07/12/19 04:14 Estimated GFR > 60 ml/min 07/12/19 04:14 BUN/Creatinine Ratio 24 % 07/12/19 04:14 Glucose 117 mg/dL (75-100) H 07/12/19 04:14 Lactic Acid 4.30 mmol/L (0.7-2.0) H* 07/12/19 04:14 Calcium 8.1 mg/dL (8.4-10.2) L 07/12/19 04:14 Magnesium 2.70 mg/dL (1.7-2.3) H 07/11/19 08:58 Total Bilirubin 2.10 mg/dL (0.1-1.2) H 07/12/19 04:14 Direct Bilirubin 1.0 mg/dL (0-0.2) H 07/11/19 10:12 Indirect Bilirubin 0.7 mg/dL 07/11/19 10:12 AST 122 units/L (5-40) H 07/12/19 04:14 ALT 42 units/L (7-56) 07/12/19 04:14 Alkaline Phosphatase 181 units/L (35-129) H 07/12/19 04:14 Ammonia 39.0 umol/L (25-60) 07/11/19 08:58 Total Creatine Kinase 106 units/L (55-170) 07/11/19 08:58 CK-MB (CK-2) < 1.0 ng/mL (0.0-4.0) 07/11/19 08:58 CK-MB (CK-2) Rel Index 0.9 (0-4) 07/11/19 08:58 Troponin T < 0.010 ng/mL (0.00-0.029) 07/11/19 16:50 NT-Pro-B Natriuret Pep 292.7 pg/mL (0-450) 07/11/19 08:58 Total Protein 6.4 g/dL (6.3-8.2) 07/12/19 04:14 Albumin 2.3 g/dL (3.9-5) L 07/12/19 04:14 Albumin/Globulin Ratio 0.6 % 07/12/19 04:14 Urine Color Yellow (Yellow) 07/11/19 12:23 Urine Turbidity Clear (Clear) 07/11/19 12:23 Urine pH 5.0 (5.0-7.0) 07/11/19 12:23 Ur Specific [place] 1.018 (1.003-1.030) 07/11/19 12:23 Urine Protein <15 mg/dl mg/dL (Negative) 07/11/19 12:23 Urine Glucose (UA) Neg mg/dL (Negative) 07/11/19 12:23 Urine Ketones Neg mg/dL (Negative) 07/11/19 12:23 Urine Blood Neg (Negative) 07/11/19 12:23 Urine Nitrite Neg (Negative) 07/11/19 12:23 Urine Bilirubin Neg (Negative) 07/11/19 12:23 Urine Urobilinogen < 2.0 mg/dL (<2.0) 07/11/19 12:23 Ur Leukocyte Esterase Neg (Negative) 07/11/19 12:23 Urine WBC (Auto) 2.0 /HPF (0.0-6.0) 07/11/19 12:23 Urine RBC (Auto) 2.0 /HPF (0.0-6.0) 07/11/19 12:23 U Epithel Cells (Auto) < 1.0 /HPF (0-13.0) 07/11/19 12:23 Blood Type O POSITIVE 07/11/19 10:39 Antibody Screen Negative 07/11/19 10:39 Crossmatch See Detail 07/11/19 10:39 Active Medications - Current Medications Current Medications: Generic Name Dose Route Start Last Admin Trade Name Freq PRN Reason Stop Dose Admin Albuterol 2.5 mg 07/11/19 12:43 Proventil IH Q3HRT PRN Shortness Of Breath Furosemide 40 mg 07/12/19 10:30 07/12/19 18:47 Lasix IV 40 mg 0600,1800 PR[facility] Administration Vancomycin HCl 1,500 mg/ 530 mls @ 265 mls/hr 07/11/19 12:00 07/12/19 00:05 Sodium Chloride IV 265 mls/hr Q12H [facility] Administration Metronidazole 500 mg in 100 mls @ 100 mls/hr 07/12/19 09:00 07/12/19 21:23 Flagyl 500 Mg/100 Ml IV 100 mls/hr Q8HR [facility] Administration Protocol Ceftriaxone Sodium 1 gm in 50 mls @ 100 mls/hr 07/12/19 10:00 07/12/19 09:55 Rocephin/Ns 1 Gm/50 Ml IV 100 mls/hr Q24HR [facility] Administration Protocol Morphine Sulfate 2 mg 07/11/19 18:17 07/12/19 21:22 Morphine IV 2 mg Q4H PRN Administration Pain, Moderate (4-6) Pantoprazole Sodium 40 mg 07/11/19 22:00 07/12/19 21:22 Protonix IV 40 mg BID [facility] Administration Sodium Chloride 10 ml 07/11/19 22:00 07/11/19 22:09 Sodium Chloride Flush Syringe 10 Ml IV 10 ml BID [facility] Administration Sodium Chloride 10 ml 07/11/19 12:43 Sodium Chloride Flush Syringe 10 Ml IV PRN PRN LINE FLUSH Spironolactone 50 mg 07/12/19 11:00 07/12/19 18:47 Aldactone PO 50 mg QDAY [facility] Administration Nutrition/Malnutrition Assess - Dietary Evaluation Nutrition/Malnutrition Findings: Nutrition Notes Start: 07/12/19 10:19 Freq: Status: Active Protocol: Document 07/12/19 10:20 CT (Rec: 07/12/19 10:59 CT [id number]) Co-Sign 07/12/19 10:20 Nutrition Notes 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 Pt stated his UBW is 166 lbs. Pt has a 5% wt loss over the last month. Pt stated that he was eating 2-[address] explained to pt that when MD approves for diet advancement, that he will most likely start with clear liquids d/t GIB and diet will advance as tolerated. Pt stated he was getting Ensure Clear apple before and would like to recieve that again once he can eat. Noted temporal wasting. Burn Absent Trauma Absent GI Symptoms None Current % PO Negligible Minimum of two criteria Yes Interpretation of Weight Loss (non- 5% in 1 month severe) Muscle Mass Mild Depletion (non-severe) #1 Nutrition Diagnosis Malnutrition Etiology chronic illness As Evidenced by Signs and Symptoms 5% wt loss in 1 month, temporal wasting Is patient on ventilator? No Is Patient Ambulatory and/or Out of Bed Yes REE-([facility]-ambulatory/OOB) [ 1998.919 [id number]] Calculation Used for Recommendations [facility] Additional Notes Protein needs: 86-70 g/day (1. 2-1.5 g/kg/day) Fluid needs: 1 ml/kcal Nutrition Intervention Change Diet Order: Diet advancement to Clear Liquid when medically feasible Add Supplement/Snack (indicate name/kcal Add Ensure clear BID when /protein ) medically feasible Provides kCal: 480 Provides Protein (gm) 16 Goal #1 Diet advancement Anticipated Discharge Needs: unable to determine at this time Follow-Up By: 07/14/19 Additional Comments Follow up for diet advancement
[2019-07-13] MEDS: VANCOMYCIN 1,500 MG in SODIUM CHLORIDE 0.9% 500 ML 500 ML IV SCH ×3 (00:48→20:32)
[2019-07-13] MEDS: FUROSEMIDE 40 MG/4 ML INJ IV SCH ×2 (05:12→18:06)
[2019-07-13] MEDS: metroNIDAZOLE/NS 500 MG/100 ML 500 MG/100 ML BAG IV SCH ×3 (05:12→22:10)
[2019-07-13 05:45] LABS: Hematocrit 26.8 % (35.5-45.6); Hemoglobin 8.9 gm/dl (11.8-15.2); Mean Corpuscular HGB Conc 33 % (32-34); Mean Corpuscular Volume 87 fl (84-94); Platelet Count 381 K/mm3 (140-440); Red Blood Count 3.07 M/mm3 (3.65-5.03); Red Cell Distribution Width 15.8 % (13.2-15.2)
[2019-07-13 06:08] LABS: Alanine Aminotransferase 41 units/L (7-56); Albumin 2.4 g/dL (3.9-5); BUN/Creatinine Ratio 20; Blood Urea Nitrogen 18 mg/dL (9-20); Calcium 8.2 mg/dL (8.4-10.2); Hemolysis Index 3
[2019-07-13] MEDS: PANTOPRAZOLE 40 MG INJ IV SCH ×2 (09:29→22:02)
[2019-07-13] MEDS: cefTRIAXone/NS 1 GM/50 ML 1 GM/50 ML BAG IV SCH (10:30)
[2019-07-13] MEDS: SPIRONOLACTONE 50 MG TAB PO SCH (10:30)
--- NOTE | 2019-07-13 14:04 | Progress Note ---
Assessment and Plan Assessment and plan: 48-year-old male with HCC, Portal Vein Thrombosis/PE on Therapeutic Anticoagulation with Pradaxa, HTN presents to ED for evaluation. Patient states that he has experienced generalized weakness, fatigue, and shortness of breath over the past 1 month with worsening symptoms over the past 1 day. Patient also reports that he has frequent episodes where he "coughs up blood". Patient states that he reported to work today and while conducting his daily work activities he reported feeling as though "I was going to pass out". Patient also reported pain in his chest. EMS was notified and upon arrival the patient was found to be in distress and subsequently transported to [facility] for further evaluation and care. Patient seen and evaluated in the emergency department. Lab and imaging studies reviewed. Upon further physical examination the patient localizes an area of pain in the epigastric region as the source of his pain which was previously referred to his chest pain. Patient found to have hepat ocellular carcinoma, systemic inflammatory response syndrome, metabolic acidosis, symptomatic anemia suspected secondary to GI bleed. Patient denies fever, chills, palpitations, trauma, skin rash, recent ill contacts. Patient admitted to [facility] for medical stabilization due to high risk for decompensation. Patient initiated on GI bleed protocol and transfused with packed red blood cells. GI team consult placed in ED. No prior admission for review. All medication listed at time of admission have been reconciled. Imaging studies. Large Ascites Acute Respiratory failure secondary to abdominal Ascites: Supportive care, nebs, expect improvement with paracentesis GI bleeding Ruled out * GI team consult placed in ED, packed red blood cell transfusion, serial CBC. Acute Blood Loss Anemia * This is likely multifactorial considering metastatic diseseas and also patient was recently on Pradax for PE. Will continue to Hold Pradaxa and monitor H/H * Continue PO protonix * No plan for Endoscopy at this time Systemic inflammatory response syndrome * Continue Empiric IV antibiotic therapy x1 dose, IV fluid resuscitation therapy, CBC, CMP, urinalysis, chest x-ray. Repeat CBC in a.m. Hepatocellular carcinoma per patient * GI team consulted, outpatient oncology follow-up, supportive care., CT abdomen and pelvis., Liver function test. Hyponatremia * IV fluid resuscitation therapy, supportive care Lactic acidosis * IV fluid resuscitation therapy, BMP, repeat BMP in a.m. Abdominal Ascites possible Malignant: Obtain Paracentesis, pending. send labs DVT prophylaxis Current Visit: Yes Status: Acute Plan to address problem: SCD to bilateral lower extremities while in bed, hold anticoagulation for now due to GI bleed. Attempted to call [facility] to see if patient can be transfered to their [facility] per their earlier request History Interval history: Patient seen and examined, abdomen still distended but respiration improving. No further nausea or vomiting. Hospitalist Physical - Physical exam Narrative exam: VITAL SIGNS: Reviewed. GENERAL: The patient appears normally developed, Vital signs as documented. HEAD: No signs of head trauma. EYES: Pupils are equal. Extraocular motions intact. EARS: Hearing grossly intact. MOUTH: Oropharynx is normal. NECK: No adenopathy, no JVD. CHEST: Chest with Diminished breath sounds bilaterally, tachypenic but improving. No wheezes, rales, or rhonchi. CARDIAC: Tachycardia rate and rhythm. S1 and S2, without murmurs, gallops, or rubs. VASCULAR: trace Edema. Peripheral pulses normal and equal in all extremities. ABDOMEN: Soft, non tender, distended. No rebound or guarding, and no masses palpated. Bowel Sounds normal. MUSCULOSKELETAL: Good range of motion of all major joints. Extremities without clubbing, cyanosis. race or edema. NEUROLOGIC EXAM: Alert and oriented x 3 No focal sensory or strength deficits. Speech normal. Follows commands. PSYCHIATRIC: Mood normal. SKIN: detial exam as documented in skin assessment - Constitutional Vitals: Temp Pulse Resp BP Pulse Ox 98.1 F 98 H 27 H 114/75 99 07/13/19 11:38 07/13/19 12:00 07/13/19 12:00 07/13/19 12:00 07/13/19 12:00 General appearance: Present: mild distress, cachectic Results - Labs CBC & Chem 7: 07/13/19 05:27 07/13/19 05:27 Labs: Laboratory Last Values WBC 14.4 K/mm3 (4.5-11.0) H 07/13/19 05:27 RBC 3.07 M/mm3 (3.65-5.03) L 07/13/19 05:27 Hgb 8.9 gm/dl (11.8-15.2) L 07/13/19 05:27 Hct 26.8 % (35.5-45.6) L 07/13/19 05:27 MCV 87 fl (84-94) 07/13/19 05:27 MCH 29 pg (28-32) 07/13/19 05:27 MCHC 33 % (32-34) 07/13/19 05:27 RDW 15.8 % (13.2-15.2) H 07/13/19 05:27 Plt Count 381 K/mm3 (140-440) 07/13/19 05:27 Lymph % (Auto) 5.2 % (13.4-35.0) L 07/12/19 04:14 Dare % (Auto) 11.3 % (0.0-7.3) H 07/12/19 04:14 Eos % (Auto) 0.2 % (0.0-4.3) 07/12/19 04:14 Baso % (Auto) 0.1 % (0.0-1.8) 07/12/19 04:14 Lymph # 0.8 K/mm3 (1.2-5.4) L 07/12/19 04:14 Dare # 1.8 K/mm3 (0.0-0.8) H 07/12/19 04:14 Eos # 0.0 K/mm3 (0.0-0.4) 07/12/19 04:14 Baso # 0.0 K/mm3 (0.0-0.1) 07/12/19 04:14 Seg Neutrophils % 83.2 % (40.0-70.0) H 07/12/19 04:14 Seg Neutrophils # 13.4 K/mm3 (1.8-7.7) H 07/12/19 04:14 PT 20.2 Sec. (12.2-14.9) H 07/11/19 07:40 INR 1.69 (0.87-1.13) H 07/11/19 07:40 APTT 71.0 Sec. (24.2-36.6) H* 07/11/19 07:40 Sodium 132 mmol/L (137-145) L 07/13/19 05:27 Potassium 4.1 mmol/L (3.6-5.0) 07/13/19 05:27 Chloride 91.5 mmol/L (98-107) L 07/13/19 05:27 Carbon Dioxide 24 mmol/L (22-30) 07/13/19 05:27 Anion Gap 21 mmol/L 07/13/19 05:27 BUN 18 mg/dL (9-20) 07/13/19 05:27 Creatinine 0.9 mg/dL (0.8-1.5) D 07/13/19 05:27 Estimated GFR > 60 ml/min 07/13/19 05:27 BUN/Creatinine Ratio 20 % 07/13/19 05:27 Glucose 127 mg/dL (75-100) H 07/13/19 05:27 Lactic Acid 4.30 mmol/L (0.7-2.0) H* 07/12/19 04:14 Calcium 8.2 mg/dL (8.4-10.2) L 07/13/19 05:27 Magnesium 2.70 mg/dL (1.7-2.3) H 07/11/19 08:58 Total Bilirubin 1.70 mg/dL (0.1-1.2) H 07/13/19 05:27 Direct Bilirubin 1.0 mg/dL (0-0.2) H 07/11/19 10:12 Indirect Bilirubin 0.7 mg/dL 07/11/19 10:12 AST 119 units/L (5-40) H 07/13/19 05:27 ALT 41 units/L (7-56) 07/13/19 05:27 Alkaline Phosphatase 197 units/L (35-129) H 07/13/19 05:27 Ammonia 39.0 umol/L (25-60) 07/11/19 08:58 Total Creatine Kinase 106 units/L (55-170) 07/11/19 08:58 CK-MB (CK-2) < 1.0 ng/mL (0.0-4.0) 07/11/19 08:58 CK-MB (CK-2) Rel Index 0.9 (0-4) 07/11/19 08:58 Troponin T < 0.010 ng/mL (0.00-0.029) 07/11/19 16:50 NT-Pro-B Natriuret Pep 292.7 pg/mL (0-450) 07/11/19 08:58 Total Protein 6.1 g/dL (6.3-8.2) L 07/13/19 05:27 Albumin 2.4 g/dL (3.9-5) L 07/13/19 05:27 Albumin/Globulin Ratio 0.6 % 07/13/19 05:27 Urine Color Yellow (Yellow) 07/11/19 12:23 Urine Turbidity Clear (Clear) 07/11/19 12:23 Urine pH 5.0 (5.0-7.0) 07/11/19 12:23 Ur Specific [place] 1.018 (1.003-1.030) 07/11/19 12:23 Urine Protein <15 mg/dl mg/dL (Negative) 07/11/19 12:23 Urine Glucose (UA) Neg mg/dL (Negative) 07/11/19 12:23 Urine Ketones Neg mg/dL (Negative) 07/11/19 12:23 Urine Blood Neg (Negative) 07/11/19 12:23 Urine Nitrite Neg (Negative) 07/11/19 12:23 Urine Bilirubin Neg (Negative) 07/11/19 12:23 Urine Urobilinogen < 2.0 mg/dL (<2.0) 07/11/19 12:23 Ur Leukocyte Esterase Neg (Negative) 07/11/19 12:23 Urine WBC (Auto) 2.0 /HPF (0.0-6.0) 07/11/19 12:23 Urine RBC (Auto) 2.0 /HPF (0.0-6.0) 07/11/19 12:23 U Epithel Cells (Auto) < 1.0 /HPF (0-13.0) 07/11/19 12:23 Blood Type O POSITIVE 07/11/19 10:39 Antibody Screen Negative 07/11/19 10:39 Crossmatch See Detail 07/11/19 10:39 Active Medications - Current Medications Current Medications: Generic Name Dose Route Start Last Admin Trade Name Freq PRN Reason Stop Dose Admin Albuterol 2.5 mg 07/11/19 12:43 Proventil IH Q3HRT PRN Shortness Of Breath Furosemide 40 mg 07/12/19 10:30 07/13/19 05:12 Lasix IV 40 mg 0600,1800 PRITESH Administration Vancomycin HCl 1,500 mg/ 530 mls @ 265 mls/hr 07/11/19 12:00 07/13/19 03:50 Sodium Chloride IV Infused Q12H PRITESH Infusion Metronidazole 500 mg in 100 mls @ 100 mls/hr 07/12/19 09:00 07/13/19 13:42 Flagyl 500 Mg/100 Ml IV 100 mls/hr Q8HR PRITESH Administration Protocol Ceftriaxone Sodium 1 gm in 50 mls @ 100 mls/hr 07/12/19 10:00 07/13/19 13:40 Rocephin/Ns 1 Gm/50 Ml IV Infused Q24HR PRITESH Infusion Protocol Morphine Sulfate 2 mg 07/11/19 18:17 07/12/19 21:22 Morphine IV 2 mg Q4H PRN Administration Pain, Moderate (4-6) Pantoprazole Sodium 40 mg 07/11/19 22:00 07/13/19 09:29 Protonix IV 40 mg BID PRITESH Administration Sodium Chloride 10 ml 07/11/19 22:00 07/13/19 10:30 Sodium Chloride Flush Syringe 10 Ml IV 10 ml BID PRITESH Administration Sodium Chloride 10 ml 07/11/19 12:43 Sodium Chloride Flush Syringe 10 Ml IV PRN PRN LINE FLUSH Spironolactone 50 mg 07/12/19 11:00 07/13/19 10:30 Aldactone PO 50 mg QDAY PRITESH Administration Nutrition/Malnutrition Assess - Dietary Evaluation Nutrition/Malnutrition Findings: Nutrition Notes Start: 07/12/19 10:19 Freq: Status: Active Protocol: Document 07/12/19 10:20 CT (Rec: 07/12/19 10:59 CT [id number]) Co-Sign 07/12/19 10:20 Nutrition Notes Need for Assessment generated from: manager fine,MST Initial or Follow up Assessment Current Diagnosis Hypertension Other Pertinent Diagnosis PE, hepatocellular CA, SIRS, metabolic acidosis, GIB, anemia, HCC Current Diet NPO Labs/Tests Na 126 Glu 117 AST 122 ALP 181 Pertinent Medications Reviewed Height 5 ft 7 in Weight 71.4 kg Usual Body Weight 75.296 kg [place] Body Weight (kg) 67.27 BMI 24.6 Intake Prior to Admission Good Weight change and time frame 5 % wt loss in 1 month Weight Status Appropriate Subjective/Other Information RN MST screen. Pt stated his UBW is 166 lbs. Pt has a 5% wt loss over the last month. Pt stated that he was eating 2-[address] explained to pt that when MD approves for diet advancement, that he will most likely start with clear liquids d/t GIB and diet will advance as tolerated. Pt stated he was getting Ensure Clear apple before and would like to recieve that again once he can eat. Noted temporal wasting. Burn Absent Trauma Absent GI Symptoms None Current % PO Negligible Minimum of two criteria Yes Interpretation of Weight Loss (non- 5% in 1 month severe) Muscle Mass Mild Depletion (non-severe) #1 Nutrition Diagnosis Malnutrition Etiology chronic illness As Evidenced by Signs and Symptoms 5% wt loss in 1 month, temporal wasting Is patient on ventilator? No Is Patient Ambulatory and/or Out of Bed Yes REE-([facility]-ambulatory/OOB) [ 1998.919 [id number]] Calculation Used for Recommendations [facility] Additional Notes Protein needs: 86-70 g/day (1. 2-1.5 g/kg/day) Fluid needs: 1 ml/kcal Nutrition Intervention Change Diet Order: Diet advancement to Clear Liquid when medically feasible Add Supplement/Snack (indicate name/kcal Add Ensure clear BID when /protein ) medically feasible Provides kCal: 480 Provides Protein (gm) 16 Goal #1 Diet advancement Anticipated Discharge Needs: unable to determine at this time Follow-Up By: 07/14/19 Additional Comments Follow up for diet advancement
--- NOTE | 2019-07-13 14:37 | Gastroenterology Progress Note ---
Assessment and Plan - Patient Problems (1) Acute blood loss anemia Current Visit: Yes Status: Acute Plan to address problem: - Unclear of hct baseline (given mets cancer), but recent use of pradaxa for PE acutely worsened with some melena. - Will continue PO protonix, and hold pradaxa for now. - Patient not unstable, no emergent need for an endoscopy. - Patient to consult with [place] MDs re: buttermaker continuous churn use of pradaxa given likely terminal CA. (2) Hepatocellular carcinoma Current Visit: Yes Status: Acute Plan to address problem: - Records not available, but if truly HCC with significant peritoneal mets, prognosis very grim. - Recommend transition to [facility] to discuss with primary Oncology team utility of long-term treatment, especially if worsening risk of GI bleed, or even causing potential hemobilia. Subjective Date of service: 07/13/19 Principal diagnosis: Liver Cancer, GI Bleed Interval history: The patient is stable, without emesis, but still has distention, and no melena. Appetite is poor. Objective - Constitutional Vitals: Temp Pulse Resp BP Pulse Ox 98.1 F 98 H 27 H 114/75 99 07/13/19 11:38 07/13/19 12:00 07/13/19 12:00 07/13/19 12:00 07/13/19 12:00 General appearance: no acute distress - EENT Eyes: PERRL, EOM intact - Respiratory Respiratory effort: normal Respiratory: bilateral: diminished - Cardiovascular Rhythm: regular Heart Sounds: Present: S1 & S2 - Gastrointestinal General gastrointestinal: Present: soft, non-tender, distended (Firm and distended) - Labs CBC & Chem 7: 07/13/19 05:27 07/13/19 05:27 Labs: Laboratory Results - last 24 hr 07/11/19 07/13/19 07/13/19 10:39 05:27 05:27 WBC 14.4 H RBC 3.07 L Hgb 8.9 L Hct 26.8 L MCV 87 MCH 29 MCHC 33 RDW 15.8 H Plt Count 381 Sodium 132 L Potassium 4.1 Chloride 91.5 L Carbon Dioxide 24 Anion Gap 21 BUN 18 Creatinine 0.9 D Estimated GFR > 60 BUN/Creatinine Ratio 20 Glucose 127 H Calcium 8.2 L Total Bilirubin 1.70 H AST 119 H ALT 41 Alkaline Phosphatase 197 H Total Protein 6.1 L Albumin 2.4 L Albumin/Globulin Ratio 0.6 Blood Type O POSITIVE Antibody Screen Negative Crossmatch See Detail
[2019-07-13] MEDS: MORPHINE 2 MG/1 ML INJ IV PRN (22:05)
[2019-07-14] MEDS: VANCOMYCIN 1,500 MG in SODIUM CHLORIDE 0.9% 500 ML 500 ML IV SCH (02:38)
[2019-07-14] MEDS: metroNIDAZOLE/NS 500 MG/100 ML 500 MG/100 ML BAG IV SCH ×2 (06:06→15:24)
[2019-07-14] MEDS: FUROSEMIDE 40 MG/4 ML INJ IV SCH (06:07)
--- NOTE | 2019-07-14 07:06 | Hem/Onc Progress Note ---
Assessment and Plan # ? GI bleeding GI team consult placed in ED, packed red blood cell transfusion prn # Hepatocellular carcinoma Current Visit: Yes Status: Acute Plan to address problem: GI team consulted, outpatient oncology follow-up, supportive care., CT abdomen and pelvis., Liver function test. # h/o thrombosis - ? portal vein notes mention pradaxa pt says he is not convinced he has liver cancer h/o hepatitis Anemia 07/13 - pt goes to [facility] ordered - Patient Problems (1) Hepatocellular carcinoma Current Visit: Yes Status: Acute Subjective Date of service: 07/14/19 Principal diagnosis: liver cell ca Interval history: transferred to [facility] floor Objective - Exam Narrative Exam: Vitals were reviewed. No pallor No icterus No neck lymph nodes Heart S1-S2 present Lungs clear to auscultation anteriorly Abdomen soft Leg no edema Male genitalia not examined Neurology AAOx3 - Constitutional Vitals: Last Vital Signs Temp 98.1 F 07/14/19 05:18 Pulse 107 H 07/14/19 05:18 Resp 18 07/14/19 05:18 BP 119/83 07/14/19 05:18 Pulse Ox 100 07/14/19 05:18 - Labs Lab Results: Laboratory Results - last 24 hr 07/11/19 07/13/19 10:39 12:34 Vancomycin Trough 14.0 Blood Type O POSITIVE Antibody Screen Negative Crossmatch See Detail Medications & Allergies - Medications Allergies/Adverse Reactions: Allergies No Known Allergies Allergy (Verified 07/11/19 08:31) Home Medications: Home Medications Medication Instructions Recorded Confirmed Last Taken Type Unobtainable 07/11/19 07/11/19 Unknown History Active Medications: Generic Name Dose Route Start Last Admin Trade Name Freq PRN Reason Stop Dose Admin Albuterol 2.5 mg 07/11/19 12:43 Proventil IH Q3HRT PRN Shortness Of Breath Furosemide 40 mg 07/12/19 10:30 07/14/19 06:07 Lasix IV 40 mg 0600,1800 PRITESH Administration Vancomycin HCl 1,500 mg/ 530 mls @ 265 mls/hr 07/11/19 12:00 07/14/19 02:38 Sodium Chloride IV Not Given Q12H PRITESH Metronidazole 500 mg in 100 mls @ 100 mls/hr 07/12/19 09:00 07/14/19 06:06 Flagyl 500 Mg/100 Ml IV 100 mls/hr Q8HR PRITESH Administration Protocol Ceftriaxone Sodium 1 gm in 50 mls @ 100 mls/hr 07/12/19 10:00 07/13/19 13:40 Rocephin/Ns 1 Gm/50 Ml IV Infused Q24HR PRITESH Infusion Protocol Morphine Sulfate 2 mg 07/11/19 18:17 07/13/19 22:05 Morphine IV 2 mg Q4H PRN Administration Pain, Moderate (4-6) Pantoprazole Sodium 40 mg 07/11/19 22:00 07/13/19 22:02 Protonix IV 40 mg BID PRITESH Administration Sodium Chloride 10 ml 07/11/19 22:00 07/13/19 22:03 Sodium Chloride Flush Syringe 10 Ml IV 10 ml BID PRITESH Administration Sodium Chloride 10 ml 07/11/19 12:43 Sodium Chloride Flush Syringe 10 Ml IV PRN PRN LINE FLUSH Spironolactone 50 mg 07/12/19 11:00 07/13/19 10:30 Aldactone PO 50 mg QDAY PRITESH Administration
[2019-07-14 07:08] LABS: Hematocrit 28.6 % (35.5-45.6); Hemoglobin 9.3 gm/dl (11.8-15.2); Mean Corpuscular HGB Conc 33 % (32-34); Mean Corpuscular Volume 89 fl (84-94); Platelet Count 361 K/mm3 (140-440); Red Blood Count 3.23 M/mm3 (3.65-5.03); Red Cell Distribution Width 15.5 % (13.2-15.2)
[2019-07-14 08:31] LABS: Alanine Aminotransferase 40 units/L (7-56); Albumin 2.3 g/dL (3.9-5); BUN/Creatinine Ratio 24; Blood Urea Nitrogen 19 mg/dL (9-20); Calcium 8.5 mg/dL (8.4-10.2); Hemolysis Index 25
[2019-07-14] MEDS: SPIRONOLACTONE 50 MG TAB PO SCH (10:20)
[2019-07-14] MEDS: PANTOPRAZOLE 40 MG INJ IV SCH (10:20)
[2019-07-14] MEDS: cefTRIAXone/NS 1 GM/50 ML 1 GM/50 ML BAG IV SCH (10:21)
[2019-07-14 11:07] LABS: INR 1.47 (0.87-1.13)
--- NOTE | 2019-07-14 14:48 | Discharge Summary ---
Providers - Providers Date of Admission: 07/11/19 12:43 Attending physician: LOVELY BRICEÑO MD 07/12/19 08:04 Consult to Physician [CONS] Routine Comment: Consulting Provider: BRUNILDA LI Physician Instructions: Reason For Exam: GI bleed, hepatic mass Consult to Physician [CONS] Routine Comment: Consulting Provider: MERCEDES CARSON Physician Instructions: Reason For Exam: hepatic mass Hospitalization Reason for admission: gi bleed Condition: Stable Hospital course: 48-year-old male with HCC, Portal Vein Thrombosis/PE on Therapeutic Anticoagulation with Pradaxa, HTN presents to ED for evaluation. Patient states that he has experienced generalized weakness, fatigue, and shortness of breath over the past 1 month with worsening symptoms over the past 1 day. Patient also reports that he has frequent episodes where he "coughs up blood". Patient states that he reported to work today and while conducting his daily work activities he reported feeling as though "I was going to pass out". Patient also reported pain in his chest. EMS was notified and upon arrival the patient was found to be in distress and subsequently transported to [facility] for further evaluation and care. Patient seen and evaluated in the emergency department. Lab and imaging studies reviewed. Upon further physical examination the patient localizes an area of pain in the epigastric region as the source of his pain which was previously referred to his chest pain. Patient found to have hepatocellular carcinoma, systemic inflammatory response syndrome, metabolic acidosis, symptomatic anemia suspected secondary to GI bleed. Patient denies fever, chills, palpitations, trauma, skin rash, recent ill contacts. Patient admitted to [facility] for medical stabilization due to high risk for decompensation. Patient initiated on GI bleed protocol and transfused with packed red blood cells. GI team consult placed in ED. No prior admission for review. All medication listed at time of admission have been reconciled. Imaging studies. Large Ascites Acute Respiratory failure secondary to abdominal Ascites: Supportive care, nebs, expect improvement with paracentesis GI bleeding Ruled out * GI team consult placed in ED, packed red blood cell transfusion, serial CBC. Acute Blood Loss Anemia * This is likely multifactorial considering metastatic diseseas and also patient was recently on Pradax for PE. Will continue to Hold Pradaxa and monitor H/H * Continue PO protonix * No plan for Endoscopy at this time Systemic inflammatory response syndrome * Continue Empiric IV antibiotic therapy x1 dose, IV fluid resuscitation therapy, CBC, CMP, urinalysis, chest x-ray. Repeat CBC in a.m. Hepatocellular carcinoma per patient * GI team consulted, outpatient oncology follow-up, supportive care., CT abdomen and pelvis., Liver function test. Hyponatremia * IV fluid resuscitation therapy, supportive care Lactic acidosis * IV fluid resuscitation therapy, BMP, repeat BMP in a.m. Abdominal Ascites possible Malignant: Obtain Paracentesis, pending. send labs Can be discharged following paracentesis Disposition: [id number] HOME UNDER [facility] Time spent for discharge: 35 mins Exam - Constitutional Vitals: Temp Pulse Resp BP Pulse Ox 98.2 F 108 H 16 122/85 100 07/14/19 08:42 07/14/19 12:00 07/14/19 08:42 07/14/19 10:20 07/14/19 08:42 Plan Activity: advance as tolerated, fall precautions Diet: low fat Special Instructions: record daily weights, record daily BP diary Follow up with: VIVIANA DUNN [Other] - 3-5 Days Prescriptions: Spironolactone [Aldactone] 25 mg PO QDAY #30 tablet Furosemide [Lasix TAB] 40 mg PO QDAY #30 tablet
[2019-07-14 15:31] VITALS: BP 106/71
--- NOTE | 2019-07-14 15:56 | Procedure Note ---
Date of procedure: 07/14/19 Pre-op diagnosis: ascites Post-op diagnosis: other (hemoperitoneum) Findings: large complex ascites Anesthesia: local Surgeon: NEVIN LOCO Estimated blood loss: none Pathology: list (120cc) Specimen disposition: to lab Condition: stable Disposition: floor
[2019-07-14 18:24] LABS: Total Cells Counted 100 /mm3
--- NOTE | 2019-07-15 08:18 | Ultrasound Report ---
ULTRASOUND-GUIDED PARACENTESIS HISTORY: ascites. PROCEDURE: The risks (including but not limited to bleeding, infection, and bowel injury) and benefi ts were explained to the patient and informed consent was obtained. A time out procedure was perform ed. Ultrasound was used to evaluate the abdomen and locate the largest ascites fluid pocket. Once the sk in was marked, the procedure site was prepped and draped in the usual sterile fashion and lidocaine w as used for local anesthesia. A skin esperanza was made and a 5 [place] centesis catheter was placed. The patient was monitored closely throughout the procedure, and a total of 5800 mL of bloody fluid was a spirated. Samples were sent to the lab for further evaluation per the primary clinicians orders. The patient tolerated the procedure well with no complications. IMPRESSION: Successful ultrasound-guided paracentesis as described. Signer Name: Gary Blanchard Jr, MD Signed: 07/15/2019 8:14 AM Workstation Name: [id number]
== END 2019-07-14 16:45 | disposition home health service (06) | DRG 435 ==
LOC: ED 07:24 → IMCU 12:43 → 4A 07-13 14:08
PROVIDERS: ADMIT Internal Medicine; ATTEND Internal Medicine
PROC: 30233K1 Transfusion of Nonautologous Frozen Plasma into Peripheral Vein, Percutaneous Approach (ICD-10-PCS; principal; 2019-07-11)
PROC: 30233N1 Transfusion of Nonautologous Red Blood Cells into Peripheral Vein, Percutaneous Approach (ICD-10-PCS; 2019-07-11)
PROC: 0W9G3ZZ Drainage of Peritoneal Cavity, Percutaneous Approach (ICD-10-PCS; 2019-07-14)
DX: C22.0 Liver cell carcinoma (principal); J96.00 Acute respiratory failure, unspecified whether with hypoxia or hypercapnia; R18.8 Other ascites; R65.10 Systemic inflammatory response syndrome (SIRS) of non-infectious origin without acute organ dysfunction; E87.1 Hypo-osmolality and hyponatremia; E87.2 Acidosis; D62 Acute posthemorrhagic anemia; R18.0 Malignant ascites; Z86.711 Personal history of pulmonary embolism; Z82.49 Family history of ischemic heart disease and other diseases of the circulatory system
CPT/HCPCS: 36415; 49083; 70450; 71046; 74177; 80048; 80053; 80076; 80202; 81001; 82040; 82106; 82140; 82271; 82550; 82553; 83605; 83735; 83880; 84160; 84484; 85014; 85018; 85025; 85027; 85610; 85730; 86850; 86900; 86901; 86920; 87040; 88112; 88305; 88342; 89051; 93005; 93010; 96361; 96365; 96375; 99292; G0378; C9113; J0696; J1940; J2270; J2543; J3370; J7030; J7040; P9016; Q9967